=== PATIENT | female | born 2000 | race Caucasian/White ===

== ENCOUNTER 2024-06-30 23:49 | Emergency (ER) | payer MEDICAID ==
[~2024-06-30] VITALS: Ht 170.1 cm; Wt 65.8 kg
[2024-07-01] MEDS ORDERED: Ondansetron Hydrochloride 4 MG TAB SL ONE (00:05)
[2024-07-01] MEDS ORDERED: LORazepam 1 MG TAB PO ONE (00:05)
[2024-07-01 00:23] LABS: BASO % 0.2 % (0.0-1.0); EOS # 0.1 10*3/uL (0.0-0.4); EOS % 0.8 % (1.0-4.0); HEMATOCRIT 40.9 % (37.0-47.0); LYMPH # 3.4 10*3/uL (1.3-4.4); LYMPH % 41.2 % (27.0-41.0); MEAN CELL VOLUME 88.9 fl (81.0-99.0); MEAN CORPUSCULAR HGB 30.2 pg (27.0-31.0); MEAN PLATELET VOLUME 9.4 fl (9.6-12.3); MONO # 0.6 10*3/uL (0.1-1.0); MONO % 6.8 % (3.0-9.0); NEUT # 4.2 10*3/uL (2.3-7.9); NEUT % 50.8 % (47.0-73.0); PLATELET COUNT AUTOMATED 200 10*3/uL (130-400); RED CELL DISTRI WIDTH 11.5 % (0-14.5); WHITE BLOOD COUNT 8.3 10*3/uL (4.8-10.8)
[2024-07-01 00:41] LABS: BUN 7 mg/dl (9-23); CHLORIDE 108 mmol/L (98-107); POTASSIUM 3.6 mmol/L (3.4-5.1)
[2024-07-01] MEDS ORDERED: METHOCARBAMOL500 M1 PO (01:32)
[2024-07-01] MEDS ORDERED: CIPRO500 MG PO (21:28)
[2024-07-01] MEDS ORDERED: VISTARIL25 M2 PO (21:28)
== END 2024-07-01 01:44 | disposition home or self-care (01) ==
LOC: ED 23:49
PROVIDERS: Internal Medicine
DX: M26.629 Arthralgia of temporomandibular joint, unspecified side (principal); F41.9 Anxiety disorder, unspecified

== ENCOUNTER 2024-07-01 18:11 | Emergency (ER) | payer MEDICAID ==
[~2024-07-01] VITALS: Ht 170.1 cm; Wt 65.8 kg
[~2024-07-01 18:11] MED LIST: METHOCARBAMOL500 M1 PO
[2024-07-01] MEDS ORDERED: hydrOXYzine pamoate 25 MG CAP PO ONE (19:40)
[2024-07-01 19:49] LABS: BASO % 0.1 % (0.0-1.0); HEMATOCRIT 42.8 % (37.0-47.0); LYMPH # 0.9 10*3/uL (1.3-4.4); MEAN CELL VOLUME 91.3 fl (81.0-99.0); MEAN CORPUSCULAR HGB 30.5 pg (27.0-31.0); MEAN CORPUSCULAR HGB CONC 33.4 g/dl (33.0-37.0); MEAN PLATELET VOLUME 9.3 fl (9.6-12.3); MONO # 0.3 10*3/uL (0.1-1.0); MONO % 3.1 % (3.0-9.0); NEUT % 87.5 % (47.0-73.0); PLATELET COUNT AUTOMATED 231 10*3/uL (130-400); RED BLOOD COUNT 4.69 10*6/uL (4.10-5.10); RED CELL DISTRI WIDTH 11.5 % (0-14.5); WHITE BLOOD COUNT 10.3 10*3/uL (4.8-10.8)
[2024-07-01 19:55] LABS: BILIRUBIN Negative (Negative); BLOOD Negative (Negative); CLARITY Clear (Clear); COLOR Dark Yellow (Yellow); GLUCOSE Negative (Negative); KETONE 4+ (Negative); LEUKO ESTERASE Negative (Negative); NITRITE Negative (Negative); PH 5.5 (4.5-8.0); SPECIFIC GRAVITY >= 1.030 (1.001-1.030)
[2024-07-01 20:02] LABS: URINE AMPHETAMINES Negative (1000ng/ml); URINE BARBITURATES Negative (200ng/ml); URINE BENZODIAZEPINES Negative (200ng/ml); URINE CANNABINOIDS (THC) Positive (50ng/ml); URINE COCAINE Negative (300ng/ml); URINE METHADONE Negative (300ng/ml); URINE OPIATES Negative (300ng/ml); URINE PHENCYCLIDINE Negative (25ng/ml)
[2024-07-01 20:06] LABS: BACTERIA 1+; MUCOUS 3+
[2024-07-01 20:07] LABS: ALKALINE PHOSPHATASE 51 U/L (46-116); BUN 8 mg/dl (9-23); CHLORIDE 105 mmol/L (98-107); POTASSIUM 3.8 mmol/L (3.4-5.1); SGPT/ALT 14 U/L (5-49)
[2024-07-01 20:09] LABS: ETHYL ALCOHOL < 3.0 mg/dl (<3)
[2024-07-01] MEDS ORDERED: AZITHROMYCIN 250 MG TAB PO ONE (21:05)
[2024-07-01] MEDS ORDERED: CIPRO500 MG PO (21:28)
[2024-07-01] MEDS ORDERED: VISTARIL25 M2 PO (21:28)
[2024-07-01] MEDS ORDERED: Water, Sterile 10 ML VIAL ONE (21:32)
== END 2024-07-01 22:03 | disposition home or self-care (01) ==
LOC: ED 18:11
PROVIDERS: Internal Medicine
DX: F41.9 Anxiety disorder, unspecified (principal); N39.0 Urinary tract infection, site not specified; Z20.2 Contact with and (suspected) exposure to infections with a predominantly sexual mode of transmission; Z87.891 Personal history of nicotine dependence

== ENCOUNTER 2024-11-27 16:42 | Emergency (ER) | payer MEDICAID ==
[~2024-11-27] VITALS: Ht 172.7 cm; Wt 72.6 kg
[~2024-11-27 16:42] MED LIST changes: +CIPRO500 MG PO; +VISTARIL25 M2 PO
[2024-11-27] MEDS ORDERED: Bacitracin Zinc 14 GM TUBE T ONE (17:20)
[2024-11-27] MEDS ORDERED: Tdap Vaccine 0.5 ML SYR (Adult Vaccine) IM ONE (17:20)
== END 2024-11-27 17:53 | disposition home or self-care (01) ==
LOC: ED 16:42
DX: S61.212A Laceration without foreign body of right middle finger without damage to nail, initial encounter (principal); F41.9 Anxiety disorder, unspecified; W26.8XXA Contact with other sharp object(s), not elsewhere classified, initial encounter; Y93.89 Activity, other specified; Y92.89 Other specified places as the place of occurrence of the external cause; Y99.0 Civilian activity done for income or pay

== ENCOUNTER 2025-01-15 01:29 | Emergency (ER) | payer OTHER ==
[~2025-01-15] VITALS: Ht 172.7 cm; Wt 81.6 kg
[2025-01-15] MEDS ORDERED: Ondansetron Hydrochloride 4 MG TAB SL ONE (02:05)
[2025-01-15] MEDS ORDERED: hydrOXYzine pamoate 25 MG CAP PO ONE (03:25)
[2025-01-15] MEDS ORDERED: Dexamethasone Sodium Phospha 20 MG/5 ML VIAL IM ONE (03:25)
[2025-01-15] MEDS ORDERED: MEDROL DOSEPAK4 MG PO (03:28)
== END 2025-01-15 03:52 | disposition home or self-care (01) ==
LOC: ED 01:29
DX: B34.9 Viral infection, unspecified (principal); Z20.822 Contact with and (suspected) exposure to COVID-19; F41.9 Anxiety disorder, unspecified; F17.200 Nicotine dependence, unspecified, uncomplicated; F19.10 Other psychoactive substance abuse, uncomplicated

== ENCOUNTER 2025-01-24 16:43 | Emergency (ER) | payer OTHER ==
[~2025-01-24] VITALS: Ht 172.7 cm; Wt 74.8 kg
[~2025-01-24 16:43] MED LIST changes: +MEDROL DOSEPAK4 MG PO
[2025-01-24] MEDS ORDERED: HYDROXYZINE HCL25 MG PO (16:51)
[2025-01-24 17:12] LABS: BASO % 0.1 % (0.0-1.0); EOS % 0.3 % (1.0-4.0); MEAN CORPUSCULAR HGB 29.6 pg (27.0-31.0); MEAN CORPUSCULAR HGB CONC 33.7 g/dl (33.0-37.0); MEAN PLATELET VOLUME 8.7 fl (9.6-12.3); MONO # 0.6 10*3/uL (0.1-1.0); MONO % 8.8 % (3.0-9.0); NEUT # 5.3 10*3/uL (2.3-7.9); NEUT % 73.4 % (47.0-73.0); PLATELET COUNT AUTOMATED 245 10*3/uL (130-400); RED BLOOD COUNT 5.23 10*6/uL (4.10-5.10); RED CELL DISTRI WIDTH 11.2 % (0-14.5); WHITE BLOOD COUNT 7.2 10*3/uL (4.8-10.8)
[2025-01-24 17:34] LABS: BUN 7 mg/dl (9-23); CHLORIDE 106 mmol/L (98-107); CPK 32 U/L (34-171); ETHYL ALCOHOL < 3.0 mg/dl (<3); POTASSIUM 4.4 mmol/L (3.4-5.1)
[2025-01-24 18:02] LABS: BILIRUBIN Negative (Negative); BLOOD Negative (Negative); CLARITY Cloudy (Clear); COLOR Yellow (Yellow); GLUCOSE Negative (Negative); KETONE 3+ (Negative); LEUKO ESTERASE Negative (Negative); NITRITE Negative (Negative); SPECIFIC GRAVITY >= 1.030 (1.001-1.030)
[2025-01-24 18:11] LABS: BACTERIA 1+; EPITHELIAL CELLS 16-20; FINE GRANULAR CAST 0-2; MUCOUS 1+; URINE AMPHETAMINES Negative (1000ng/ml); URINE BARBITURATES Negative (200ng/ml); URINE BENZODIAZEPINES Negative (200ng/ml); URINE CANNABINOIDS (THC) Positive (50ng/ml); URINE COCAINE Negative (300ng/ml); URINE METHADONE Negative (300ng/ml); URINE OPIATES Negative (300ng/ml); URINE PHENCYCLIDINE Negative (25ng/ml); WBC 0-2 wbc/hpf (0-5)
== END 2025-01-24 20:39 | disposition home or self-care (01) ==
LOC: ED 16:43
PROVIDERS: Nurse Practitioner Family
DX: F43.23 Adjustment disorder with mixed anxiety and depressed mood (principal); F19.10 Other psychoactive substance abuse, uncomplicated; Z79.899 Other long term (current) drug therapy

== ENCOUNTER 2025-02-02 11:28 | Emergency (ER) | payer OTHER ==
[~2025-02-02] VITALS: Wt 81.6 kg
[~2025-02-02 11:28] MED LIST changes: +HYDROXYZINE HCL25 MG PO
[2025-02-02] MEDS ORDERED: SODIUM CHLORIDE 0.9% 1,000 ML IV ONE (11:50)
[2025-02-02 12:16] LABS: BASO % 0.1 % (0.0-1.0); EOS % 0.5 % (1.0-4.0); HEMATOCRIT 43.1 % (37.0-47.0); MEAN CORPUSCULAR HGB 29.3 pg (27.0-31.0); MEAN CORPUSCULAR HGB CONC 34.1 g/dl (33.0-37.0); MEAN PLATELET VOLUME 8.9 fl (9.6-12.3); MONO # 0.5 10*3/uL (0.1-1.0); MONO % 5.8 % (3.0-9.0); NEUT # 5.7 10*3/uL (2.3-7.9); NEUT % 73.9 % (47.0-73.0); PLATELET COUNT AUTOMATED 224 10*3/uL (130-400); RED BLOOD COUNT 5.01 10*6/uL (4.10-5.10); RED CELL DISTRI WIDTH 11.1 % (0-14.5); WHITE BLOOD COUNT 7.8 10*3/uL (4.8-10.8)
[2025-02-02 12:35] LABS: BUN 10 mg/dl (9-23); CHLORIDE 106 mmol/L (98-107)
[2025-02-02] MEDS ORDERED: LORazepam 1 MG TAB PO ONE (12:55)
== END 2025-02-02 13:43 | disposition home or self-care (01) ==
LOC: ED 11:28
PROVIDERS: Nurse Practitioner Family
DX: R07.89 Other chest pain (principal); R00.2 Palpitations; F41.9 Anxiety disorder, unspecified; Z79.899 Other long term (current) drug therapy